=== PATIENT | male | born 1980 | race Caucasian/White ===

== ENCOUNTER 2019-05-22 20:34 | Emergency (ER) | payer BC ==
[~2019-05-22] VITALS: Ht 172.7 cm; Wt 135.3 kg
[~2019-05-22 20:34] MED LIST: IBUP-1542 PO; PENI500T PO
[2019-05-22 20:47] VITALS: Ht 172.7 cm; Wt 135.3 kg
[2019-05-22] MEDS ORDERED: PENICILLIN V K 250 MG TAB PO ONE (22:00)
[2019-05-22] MEDS ORDERED: ACETAMINOPHEN 325 MG TAB PO ONE (22:00)
[2019-05-22 22:47] VITALS: BP 139/84; PULSE 116; RESP 18
== END 2019-05-22 22:50 | disposition home or self-care (01) ==
LOC: E/R 20:34
DX: K04.7 Periapical abscess without sinus (principal)
CPT/HCPCS: 99283